=== PATIENT | female | born 1985 | race Caucasian/White ===

== ENCOUNTER 2017-09-13 11:43 | Emergency (ER) | payer MEDICAID, OTHER ==
[2017-09-13] MEDS ORDERED: NS 1,000 ML IV ONE (14:09)
--- NOTE | 2017-09-13 14:09 | EDPHY ---
H & P Time Seen by Provider: 09/13/17 13:41 HPI/ROS: CHIEF COMPLAINT: Dizziness HISTORY OF PRESENT ILLNESS: Patient is a 32-year-old female who presents emergency department after having a period of dizziness. The patient was at work when she started to feel strange. She felt off balance. She describes being "out of it. "The patient denies any headache or neck pain. Patient states that she had general weakness but denies any focal weakness or numbness. No incoordination. Patient also states that she has had sinus congestion for urine half. This is not changed recently. Patient has no chest pain. No cough. No fevers or chills. Patient reported nausea with no vomiting. No diarrhea. REVIEW OF SYSTEMS: My complete review of systems is negative except as mentioned in the HPI. Past Medical/Surgical History: Includes anxiety, anemia, depression Past surgical history: Includes appendectomy Social history: The patient does not smoke. She denies drug or alcohol use. Smoking Status: Never smoked Physical Exam: 36.6, 131/87, 86, 18, 97% on room air GENERAL: Well-appearing, in no acute distress, alert. HEENT: Eyes normal to inspection, normal pharynx, no signs of dehydration. NECK: No thyromegaly, no lymphadenopathy, supple. RESPIRATORY: Clear to auscultation bilaterally, no rales, rhonchi or wheezing. CVS: Regular rate and rhythm, no rubs, murmurs, or gallops. ABDOMEN: Soft, nontender, nondistended, no organomegaly. BACK: Normal to inspection, no CVA tenderness. SKIN: Normal color, no rash, warm, dry. No pallor. EXTREMITIES: No pedal edema, no calf tenderness, no Homans sign or cords, no joint swelling. NEURO/PSYCH: Higher functions: Alert and Oriented x3. Normal speech and cognition. Normal mood and affect. Cranial nerves: Normal as tested. Cerebellar: Normal as tested. Good finger to nose, good [id number], normal gait. Peripheral exam: Normal motor exam. Normal sensation. Normal reflexes. Constitutional: Initial Vital Signs Temperature (C) 36.6 C 09/13/17 11:54 Heart Rate 86 09/13/17 11:54 Respiratory Rate 18 09/13/17 11:54 Blood Pressure 131/87 H 09/13/17 11:54 O2 Sat (%) 97 09/13/17 11:54 O2 Delivery Mode Room Air Allergies/Adverse Reactions: No Known Allergies Allergy (Unverified 10/30/16 14:41) Medical Decision Making - Diagnostics Imaging Results: Imaging Impressions Head CT 09/13/17 14:10 Impression: Normal brain. No intracranial hemorrhage, edema, or fracture. Findings discussed with Emergency Department physician, Dr. Johanny Farrell on September 13, 2017 at 1519 hours. ED Course/Re-evaluation: In the emergency department I discussed possible etiologies with the patient. I answered all her questions. IV was placed. Laboratory studies were ordered. Head CT was ordered. Patient given normal saline 1 L IV for hydration. EKG: Sinus rhythm at 76. Normal axis. Normal intervals. Flattened T-waves laterally. Patient's laboratory studies remarkable for an anion gap of 17 and white count of 10. She is not anemic. Troponin and were negative. Head CT: Please refer the dictated report by Dr. Fredy Frederick. No acute disease noted. Discussed the result with the patient. I answered all her questions. On recheck the patient was doing well. She had no focal neurologic deficits. No headache. No chest pain or shortness of breath. She was given warnings prior to leaving. She will return with worsening symptoms. Differential Diagnosis: My differential includes but is not limited to ischemic CVA, hemorrhagic CVA, dissection, aneurysm, mass, malignancy, peripheral vertigo, labyrinthitis, ACS, acute [place] electrolyte abnormality, sugar abnormality - Data Points Laboratory Results: Laboratory Results 09/13/17 14:29 09/13/17 14:29 09/13/17 09/13/17 09/13/17 14:29 14:29 14:29 WBC RBC Hgb Hct MCV MCH MCHC RDW Plt Count MPV Neut % (Auto) Lymph % (Auto) [place] % (Auto) Eos % (Auto) Baso % (Auto) Nucleat RBC Rel Count Absolute Neuts (auto) Absolute Lymphs (auto) Absolute Monos (auto) Absolute Eos (auto) Absolute Basos (auto) Absolute Nucleated RBC Immature Gran % Immature Gran # PT 13.3 SEC SEC (12.0-15.0) INR 1.02 (0.83-1.16) APTT 30.1 SEC SEC (23.0-38.0) Sodium 141 mEq/L mEq/L (134-144) Potassium 3.9 mEq/L mEq/L (3.5-5.2) Chloride 100 mEq/L mEq/L (97-110) Carbon Dioxide 23 mEq/l mEq/l (22-31) Anion Gap 18 mEq/L H mEq/L (8-16) BUN 10 mg/dL mg/dL (7-23) Creatinine 0.7 mg/dL mg/dL (0.6-1.0) Estimated GFR > 60 Glucose 88 mg/dL mg/dL (70-100) Calcium 10.0 mg/dL mg/dL (8.5-10.4) Troponin I < 0.012 ng/mL ng/mL (0.000-0.034) Beta HCG, Qual NEGATIVE 09/13/17 14:29 WBC 9.89 10^3/uL H 10^3/uL (3.80-9.50) RBC 5.16 10^6/uL 10^6/uL (4.18-5.33) Hgb 14.7 g/dL g/dL (12.6-16.3) Hct 42.3 % % (38.0-47.0) MCV 82.0 fL fL (81.5-99.8) MCH 28.5 pg pg (27.9-34.1) MCHC 34.8 g/dL g/dL (32.4-36.7) RDW 12.5 % % (11.5-15.2) Plt Count 344 10^3/uL 10^3/uL (150-400) MPV 9.6 fL fL (8.7-11.7) Neut % (Auto) 59.1 % % (39.3-74.2) Lymph % (Auto) 30.7 % % (15.0-45.0) [place] % (Auto) 6.1 % % (4.5-13.0) Eos % (Auto) 3.4 % % (0.6-7.6) Baso % (Auto) 0.4 % % (0.3-1.7) Nucleat RBC Rel Count 0.0 % % (0.0-0.2) Absolute Neuts (auto) 5.84 10^3/uL 10^3/uL (1.70-6.50) Absolute Lymphs (auto) 3.04 10^3/uL H 10^3/uL (1.00-3.00) Absolute Monos (auto) 0.60 10^3/uL 10^3/uL (0.30-0.80) Absolute Eos (auto) 0.34 10^3/uL 10^3/uL (0.03-0.40) Absolute Basos (auto) 0.04 10^3/uL 10^3/uL (0.02-0.10) Absolute Nucleated RBC 0.00 10^3/uL 10^3/uL (0-0.01) Immature Gran % 0.3 % % (0.0-1.1) Immature Gran # 0.03 10^3/uL 10^3/uL (0.00-0.10) PT INR APTT Sodium Potassium Chloride Carbon Dioxide Anion Gap BUN Creatinine Estimated GFR Glucose Calcium Troponin I Beta HCG, Qual Medications Given: Sodium Chloride (Ns) 1,000 mls @ 500 mls/hr IV EDNOW ONE PRN Reason: Protocol Stop: 09/13/17 16:08 Last Admin: 09/13/17 14:29 Dose: 1,000 mls Departure - Departure Disposition: Home, Routine, Self-Care Clinical Impression: Dizzy Condition: Good Instructions: Vertigo (ED) Additional Instructions: Your head CT was normal. Return with increasing dizziness, lightheadedness, chest pain, shortness of breath or any other concerns. Referrals: Sonam Garcia PA [Primary Care Provider] - 2-3 days without fail
--- NOTE | 2017-09-13 14:23 | CPEKG ---
Heart Rate: 76 RR Interval: 789 P-R Interval: 156 QRSD Interval: 90 QT Interval: 396 QTC Interval: 446 P [place]: -2 QRS [place]: 7 T Wave [place]: -1 EKG Severity - BORDERLINE ECG - EKG Impression: SINUS RHYTHM EKG Impression: BORDERLINE T ABNORMALITIES, DIFFUSE LEADS Electronically Signed By: Johanny Farrell 13-Sep-2017 20:04:28
[2017-09-13 14:31] VITALS: O2SAT 98
[2017-09-13 14:43] LABS: % IMMATURE GRANULYOCYTES 0.3 % (0.0-1.1); ABSOLUTE IMMATURE GRANULOCYTES 0.03 10^3/uL (0.00-0.10); ADD DIFF? NO; ADD MORPH? NO; ADD SCAN? NO; ATYPICAL LYMPHOCYTE FLAG 10 (0-99); FRAGMENT RBC FLAG 0 (0-99); HEMATOCRIT 42.3 % (38.0-47.0); HEMOGLOBIN 14.7 g/dL (12.6-16.3); LEFT SHIFT FLG 0 (0-99); LIPEMIA HEMOLYSIS FLAG 90 (0-99); MEAN CELL HEMOGLOBIN 28.5 pg (27.9-34.1); MEAN CELL HEMOGLOBIN CONCENTR. 34.8 g/dL (32.4-36.7); MEAN PLATELET VOLUME 9.6 fL (8.7-11.7); PLATELET CLUMPS FLAG 0 (0-99); PLATELET COUNT 344 10^3/uL (150-400); RED BLOOD CELL COUNT 5.16 10^6/uL (4.18-5.33); RED CELL DISTRIBUTION WIDTH 12.5 % (11.5-15.2)
[2017-09-13 14:50] LABS: INR 1.02 (0.83-1.16); PROTIME(PATIENT) 13.3 SEC (12.0-15.0)
[2017-09-13 14:51] LABS: APTT 30.1 SEC (23.0-38.0)
[2017-09-13 14:58] LABS: ANION GAP 18 mEq/L (8-16); CARBON DIOXIDE 23 mEq/l (22-31); CHLORIDE 100 mEq/L (97-110); CREATININE 0.7 mg/dL (0.6-1.0); GLOMERULAR FILTRATION RATE > 60; GLUCOSE 88 mg/dL (70-100); POTASSIUM 3.9 mEq/L (3.5-5.2); SODIUM 141 mEq/L (134-144)
[2017-09-13 15:09] LABS: TROPONIN I < 0.012 ng/mL (0.000-0.034)
[2017-09-13 15:30] VITALS: BP 142/71; PULSE 88; RESP 18; TEMP 98.2
== END 2017-09-13 15:35 | disposition home or self-care (01) ==
LOC: EDUNIT#
DX: R42 Dizziness and giddiness (principal); E86.9 Volume depletion, unspecified